=== PATIENT | female | born 1990 | race African-American/Black ===

== ENCOUNTER 2022-06-28 12:34 | Emergency (ER) | payer OTHER, SELFPAY ==
[2022-06-28 12:43] VITALS: BP 128/85; PULSE 110; RESP 18; TEMP 36.9; O2SAT 100
[2022-06-28] MEDS: predniSONE 20 MG TABLET 60 MG PO (14:09)
[2022-06-28 15:00] VITALS: BP 132/85; PULSE 87; RESP 15; O2SAT 99
--- NOTE | 2022-06-28 15:25 | ED.ALLEREA ---
HPI - Allergic Reaction General Chief complaint: Allergic Reaction Stated complaint: facial swelling Time Seen by Provider: 06/28/22 13:48 History of Present Illness HPI narrative: Patient is a 31-year-old female who presents ER with facial swelling. Worsening over the last 3 days. Itching. Also associated with irritation to her neck and chest. She also has rash in the antecubital fossa of her arms bilaterally and on her knees. Patient denies any difficulty breathing or swallowing. No improvement with Benadryl. She is not taking any oral medications at this time. 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 She has not had any shrimp since then. She also reports that she changed her laundry detergent just prior to going out to eat and she is using a detergent that she got at the [employer]. She is unsure if it is dye free or fragrance free. There is also a new dog in the home but she has been keeping it in a crate or putting it outside because of this rash its been occurring. Related Data Allergies Allergy/AdvReac Type Severity Reaction Status Date / Time iodine Allergy Swelling Verified 06/28/22 13:52 shrimp Allergy Swelling Verified 06/28/22 13:51 Review of Systems Review of Systems: All systems reviewed & are unremarkable except as noted in HPI and below Constitutional: Constitutional: Denies chills and Denies fever(s) ENT: Denies nasal congestion and Denies sore throat Cardiovascular: Cardiovascular: Denies chest pain and Denies rapid heart rate Gastrointestinal: Gastrointestinal: Denies abdominal pain, Denies nausea and Denies vomiting Integumentary/Breasts: Skin/Breast: Reports pruritus, Denies erythema and Denies skin ulcer Comments: facial swelling Exam Narrative: GENERAL: Well-appearing, well-nourished, and in no acute distress. HEAD: Normocephalic, atraumatic. EYES: PERRL and EOMI. ENT: Mucous membranes moist. Swelling of the forehead, periorbital area has, cheeks, and neck with thickening of the skin that is dark. There is no angioedema of the lips or tongue. Posterior airway without swelling and uvula is midline and nonedematous. CHEST: Clear to auscultation. No respiratory distress. HEART: Regular rate and rhythm. Normal peripheral pulses. EXTREMITIES: Normal range of motion. No edema. SKIN: Warm, dry. Eczema versus contact dermatitis type rash to the arms and upper neck. NEURO: Alert and oriented x3. PSYCH: Normal mood and affect. Course Course Emergency Course: I believe the patient is having contact dermatitis of her face and extremities from her purchase of [employer] detergent. She has been wearing a neck gaiter that she has washed in the detergent and I think this is causing constant irritation to her neck and face which seems to be the worst affected. Recommend dye free and fragrance free detergent and we will also put her on a steroid burst. Vital Signs Vital signs: Vital Signs Temperature 98.5 F 06/28/22 12:43 Pulse Rate 110 H 06/28/22 12:43 Respiratory Rate 18 06/28/22 12:43 Blood Pressure 128/85 06/28/22 12:43 Pulse Oximetry 100 06/28/22 12:43 Oxygen Delivery Room Air 06/28/22 12:43 Temperature 98.5 F 06/28/22 12:43 Pulse Rate 110 H 06/28/22 12:43 Respiratory Rate 18 06/28/22 12:43 Blood Pressure 128/85 06/28/22 12:43 Pulse Oximetry 100 06/28/22 12:43 Oxygen Delivery Room Air 06/28/22 12:43 Discharge Plan Discharge Clinical Impression: Contact dermatitis Patient Disposition: Home, Self-Care Condition: Stable Instructions: Contact Dermatitis (ED) Additional Instructions: Discontinue use of your [employer] detergent. Please purchase a detergent that is dye free and fragrance free. Suggested you purchase All Free and Clear or any other brand that is labeled as free and clear. From the ER [email or web address]
== END 2022-06-28 16:13 | disposition home or self-care (01) ==
PROVIDERS: Emergency Provider Emergency Medicine
DX: T55.1X1A Toxic effect of detergents, accidental (unintentional), initial encounter (principal); L25.3 Unspecified contact dermatitis due to other chemical products
CPT/HCPCS: 99283; J7512